=== PATIENT | female | born 1975 | race Caucasian/White ===

== ENCOUNTER → 2017-08-11 | Day surgery (SDC) | payer OTHER ==
[~2017-08-11] VITALS: Ht 168 cm; Wt 61.2 kg
[~2017-08-11] MED LIST: IBUPROFEN800 M1 PO; IBUPROFEN800 MG PO; PERCOCET 325 MG1 TA2 PO; PRENAPLUS PO; PRENATAL VITAM1 EACH PO; PRENATAL1 TA2 PO
--- NOTE | 2017-08-11 09:34 | Operative Report ---
Operative/Inv Procedure Report Surgery Date: 08/11/17 Name of Procedure: uethral sling, cystoscopy Pre-Operative Diagnosis: stressi incontinence Post-Operative Diagnosis: same Estimated Blood Loss: less than 50ml Surgeon/Cardiac Surgeon: Chloé Clark MD Anesthesia: local monitored anesthesi Implants: vaginal mesh Complications: none Condition: stable Operative Indication: stress incontinence Operative/Procedure Note Note: Operative dictation on Serena Catalan. [id number] female with a complicated history of urinary incontinence following prolonged labor and delivery. She initially had a urethral diverticulectomy last year. This greatly improved her constant urinary incontinence. However she did continue to experience incontinence which she was counseled about. Even with cystoscopy and urodynamic evaluation it was difficult to determine the exact cause of the remaining incontinence. However she did do a tampon test and the greater part of her incontinence was related to activity. She was counseled that she might need medical therapy for the remaining type of incontinence. She was also counseled on the possible need for pubovaginal sling with harvesting of abdominal fascia given her previous surgery and scar tissue surrounding the urethra. The risks benefits and alternatives of the surgery were given to her and her [id number]. All questions were answered. Consent was signed. Patient was identified in the holding area and brought to the operating room placed on the operating table in the supine position. Timeout was performed. IV antibiotics were infused. SCDs were placed on the lower extremities. She was placed in the dorsolithotomy position. She was prepped and draped in the standard sterile fashion. Fletcher catheter was placed to empty the bladder and then was clamped and placed on the patient's abdomen. Since retractor was placed for better visualization. 1% lidocaine with epinephrine was infiltrated into the anterior vaginal wall beneath the urethra. An incision was made with # 15 blade approximately 2 inches in length underneath the urethra. Vaginal flaps are created taking care not to injure the urethra. A cystoscopy was performed to evaluate the integrity of the urethra and there was no injury. The lead was placed back into the bladder. The Altis Sling kit was then opened and the trochars provided was used to place the sling first in the left obturator fascia followed by the right side. The trochars did not dumont the vaginal fornices. The sling was tightened using the Prolene suture. Was in a nice tension-free manner with the DeBakey between the urethra and the sling. There was copiously irrigated with bacitracin irrigation. A cystoscopy was performed and the bladder and the urethra globally inspected. There were no abnormalities and the bladder or the urethra. The ureteral orifices were in their normal anatomic position. The bladder was emptied and cystoscope was removed. The Prolene tightening suture was cut. The incision was closed with 3-0 Vicryl running locking every third suture. 2 inch vaginal packing impregnated with bacitracin ointment was placed into the vaginal vault. Sponge and needle count were correct at the end of the case. Patient tolerated procedure well. Findings: No mesh in the urethral bladder or vaginal fornices. Discharge Disposition: Same Day Admissions
== END ==
LOC: STS 02:18
DX: N39.3 Stress incontinence (female) (male) (principal); R33.9 Retention of urine, unspecified; N39.498 Other specified urinary incontinence; N36.1 Urethral diverticulum; N39.41 Urge incontinence; N32.81 Overactive bladder
CPT/HCPCS: 81025; C1771; J0131; J0690; J1885; J2250